=== PATIENT | female | born 1995 | race Hispanic/Latino ===

== ENCOUNTER 2017-08-18 14:34 | Observation (INO) | payer OTHER ==
[2017-08-18 14:43] VITALS: BMI 20.1
[2017-08-18] MEDS ORDERED: Sodium Chloride 0.9% 1,000 ML IV STA (14:56)
[2017-08-18] MEDS ORDERED: Iohexol 240 (50 ml) ONE (15:00)
--- NOTE | 2017-08-18 15:12 | ED PDOC ---
Arrival/HPI - General Chief Complaint: Abdominal Pain Time Seen by Provider: 08/18/17 14:51 Historian: Patient - History of Present Illness Narrative History of Present Illness (Text): 08/18/17 15:06 22yr old female presents today with a 7 day history of upper abdominal pain. pt states pain started 7 days ago after eating. pt states the pain was a heaviness. pt states pain has been worsening over the past few days. pt states she was seen at another hospital and had US which showed gallstones. pt denies dizziness or weakness. pt states she vomited 7 days ago, but not since. pt denies constipation or diarrhea. denies fever/chills. pt denies back pain. no urinary symptoms. denies vaginal discharge. pt states she has been taking motrin for pain without improvement. no other complaints. Past Medical History - Provider Review Nursing Documentation Reviewed: Yes - Travel History Have you recently traveled outside [place] w/in the past 3 mons?: No - Infectious Disease Hx of Infectious Diseases: None - Psychiatric Hx Substance Use: No - Anesthesia Hx Anesthesia: No Family/Social History - Physician Review Nursing Documentation Reviewed: Yes Family/Social History: Unknown Family HX Smoking Status: Never Smoked Hx Alcohol Use: No Hx Substance Use: No Allergies/Home Meds Allergies/Adverse Reactions: Allergies Iodine and Iodide Containing Produc Allergy (Verified 11/05/15 10:02) RASH Sulfa (Sulfonamide Antibiotics) Allergy (Verified 11/05/15 10:02) RASH Home Medications: Home Meds Medication Instructions Recorded Confirmed Unk Med For Allergies 11/05/15 Review of Systems - Review of Systems Constitutional: absent: Fatigue, Fevers Respiratory: absent: SOB, Cough Cardiovascular: absent: Chest Pain, Palpitations Gastrointestinal: Abdominal Pain, Nausea, Vomiting. absent: Constipation, Diarrhea Genitourinary Female: absent: Dysuria, Frequency, Hematuria, Vaginal Discharge Musculoskeletal: absent: Arthralgias, Back Pain, Neck Pain Skin: absent: Rash, Pruritis Neurological: absent: Headache, Dizziness Psychiatric: absent: Anxiety, Depression Physical Exam Vital Signs Reviewed: Yes Vital Signs Temp Pulse Resp BP Pulse Ox 08/18/17 16:40 60 18 108/70 100 08/18/17 14:35 98 F 72 18 110/69 100 Temperature: Afebrile Blood Pressure: Normal Pulse: Regular Respiratory Rate: Normal Appearance: Positive for: Well-Appearing, Non-Toxic, Comfortable Pain Distress: None Mental Status: Positive for: Alert and Oriented X 3 - Systems Exam Head: Present: Atraumatic Mouth: Present: Moist Mucous Membranes Nose (Internal): Present: Normal Inspection Neck: Present: Normal Range of Motion Respiratory/Chest: Present: Clear to Auscultation, Good Air Exchange. No: Respiratory Distress, Accessory Muscle Use Cardiovascular: Present: Regular Rate and Rhythm, Normal S1, S2. No: Murmurs Abdomen: Present: Tenderness (+ ruq, epigastric and luq tenderness), Normal Bowel Sounds. No: Distention, Peritoneal Signs, Rebound, Guarding, McBurney's Point Tender Back: Present: Normal Inspection. No: CVA Tenderness, Midline Tenderness, Paraspinal Tenderness Upper Extremity: Present: Normal ROM Lower Extremity: Present: Normal ROM. No: Edema Neurological: Present: GCS=15, Speech Normal Skin: Present: Warm, Dry, Normal Color. No: Rashes Psychiatric: Present: Alert, Oriented x 3 Medical Decision Making ED Course and Treatment: 08/18/17 15:21 Patient is nontoxic well appearing with stable vital signs presenting with abdominal pain CBC wnl CMP wnl Lipase w nl Urinalysis: WNL Ultrasound: gallstone. CAT scan: FINDINGS: LOWER THORAX: Unremarkable. LIVER: Unremarkable. No gross lesion or ductal dilatation. GALLBLADDER AND BILE DUCTS: Gallstones visible on the concurrent ultrasound are not identified this examination. PANCREAS: Unremarkable. No gross lesion or ductal dilatation. SPLEEN: Unremarkable. ADRENALS: Unremarkable. No mass. KIDNEYS AND URETERS: Unremarkable. No hydronephrosis. No solid mass. VASCULATURE: Unremarkable. No aortic aneurysm. BOWEL: Unremarkable. No obstruction. No gross mural thickening. APPENDIX: Normal appendix. PERITONEUM: Unremarkable. No free fluid. No free air. LYMPH NODES: Unremarkable. No enlarged lymph nodes. BLADDER: Unremarkable. REPRODUCTIVE: Unremarkable. BONES: No acute fracture. OTHER FINDINGS: None. IMPRESSION: No significant or acute findings to account for/ related to the clinical presentation. Patient reassessment: pt non toxic well appearing; no distress. case was discussed with dr. mercado; pt to be admitted to his service with GI consult. Impression: Abdominal pain, gallstones admit observational status to med/surg 08/18/17 19:18 - Lab Interpretations Lab Results: 08/18/17 15:00 08/18/17 15:00 Lab Results 08/18/17 16:23: Urine Color Light yellow, Urine Appearance Clear, Urine pH 6.0, Ur Specific [place] 1.010, Urine Protein Negative, Urine Glucose (UA) Negative, Urine Ketones Negative, Urine Blood Negative, Urine Nitrate Negative, Urine Bilirubin Negative, Urine Urobilinogen 0.2, Ur Leukocyte Esterase Negative 08/18/17 15:00: WBC 4.9, RBC 4.50, Hgb 13.7, Hct 40.5, MCV 90.0, MCH 30.4, MCHC 33.8, RDW 12.6, Plt Count 349, MPV 9.0, Gran % 50.8, Lymph % (Auto) 39.0 H, [place] % (Auto) 5.9, Eos % (Auto) 4.1, Baso % (Auto) 0.2, Gran # 2.50, Lymph # ( Auto) 1.9, [place] # (Auto) 0.3, Eos # (Auto) 0.2, Baso # (Auto) 0.01 08/18/17 15:00: Sodium 141, Potassium 4.3, Chloride 105, Carbon Dioxide 26, Anion Gap 15, BUN 13, Creatinine 0.8, Est GFR ( Amer) > 60, Est GFR (Non- Af Amer) > 60, Random Glucose 78, Calcium 9.8, Total Bilirubin 0.2, AST 22, ALT 28, Alkaline Phosphatase 41, Total Protein 7.1, Albumin 4.1, Globulin 3.1, Albumin/Globulin Ratio 1.3, Lipase 123 - RAD Interpretation Radiology Orders: 08/18/17 14:52 ABD & PELVIS PO CONTRAST ONLY [CT] Stat 08/18/17 17:04 GALLBLADDER & HEPATIC [US] Routine - Medication Orders Current Medication Orders: Acetaminophen (Tylenol 325mg Tab) 650 mg PO Q6H PRN PRN Reason: Fever >100.4 F Ondansetron HCl (Zofran Inj) 4 mg IVP Q6H PRN PRN Reason: Nausea/Vomiting Pantoprazole Sodium (Protonix Inj) 40 mg IVP DAILY SAMEER Discontinued Medications Famotidine (Pepcid) 20 mg IVP STAT STA Stop: 08/18/17 14:57 Last Admin: 08/18/17 15:26 Dose: 20 mg IVP Administration Document 08/18/17 15:26 [facility] (Rec: 08/18/17 15:26 [facility] [id number]) Charges for Administration # of IVP Administrations 1 Sodium Chloride (Sodium Chloride 0.9%) 1,000 mls @ 999 mls/hr IV .Q1H1M STA Stop: 08/18/17 15:56 Last Admin: 08/18/17 15:22 Dose: 999 mls/hr eMAR Start Stop Document 08/18/17 15:22 [facility] (Rec: 08/18/17 15:26 [facility] [id number]) Intravenous Solution Start Date 08/18/17 Start Time 15:26 End Date 08/18/17 End time 16:26 Total Infusion Time 60 Disposition/Present on Arrival - Present on Arrival Any Indicators Present on Arrival: No History of DVT/PE: No History of Uncontrolled Diabetes: No Urinary Catheter: No History of Decub. Ulcer: No History Surgical Site Infection Following: None - Disposition Have Diagnosis and Disposition been Completed?: Yes Diagnosis: Abdominal pain, Gallstones Disposition: HOSPITALIZED Disposition Time: 18:19 Patient Plan: Observation Condition: FAIR Forms: [facility] (Ukrainian)
[2017-08-18 15:36] LABS: BASO # 0.01 K/mm3 (0.0-2.0); BASO % 0.2 % (0.0-3.0); EOS # 0.2 (0.0-0.7); EOS % 4.1 % (1.5-5.0); GRAN # 2.5 (1.4-6.5); GRAN % 50.8 % (50.0-68.0); HEMOGLOBIN 13.7 g/dL (12.0-16.0); LYMPH # 1.9 (1.2-3.4); MEAN CORPUSCULAR HEMOGLOBIN 30.4 pg (25.0-35.0); MEAN CORPUSCULAR HGB CONC 33.8 g/dl (31.0-37.0); MONO # 0.3 (0.1-0.6); MONO % 5.9 % (1.0-6.0); RBC 4.5 10^6/uL (3.5-6.1); RED CELL DISTRIBUTION WIDTH 12.6 % (11.5-14.5); WHITE BLOOD COUNT 4.9 10^3/ul (4.5-11.0)
[2017-08-18 15:39] LABS: BLOOD UREA NITROGEN 13 mg/dL (7-21); GFR AFRICAN-AMERICAN > 60; GFR NON-AFRICAN AMERICAN > 60
[2017-08-18 15:40] LABS: ALB/GLOB RATIO 1.3 (1.1-1.8); ALBUMIN 4.1 g/dL (3.0-4.8); ALT/SGPT 28 U/L (7-56); AST/SGOT 22 U/L (14-36); CALCIUM 9.8 mg/dL (8.4-10.5); LIPASE 123 U/L (23-300)
--- NOTE | 2017-08-18 16:34 | CP.PCM.CON ---
Past Patient History - Infectious Disease Hx of Infectious Diseases: None - Past Social History Smoking Status: Never Smoked - PSYCHIATRIC Hx Substance Use: No - ANESTHESIA Hx Anesthesia: No Meds Allergies/Adverse Reactions: Allergies Allergy/AdvReac Type Severity Reaction Status Date / Time Iodine and Iodide Containing Allergy RASH Verified 11/05/15 10:02 Produc Sulfa (Sulfonamide Allergy RASH Verified 11/05/15 10:02 Antibiotics) Results - Vital Signs Recent Vital Signs: Last Vital Signs Temp 98 F 08/18/17 14:35 Pulse 72 08/18/17 14:35 Resp 18 08/18/17 14:35 BP 110/69 08/18/17 14:35 Pulse Ox 100 08/18/17 14:35 - Labs Result Diagrams: 08/18/17 15:00 08/18/17 15:00 Labs: Laboratory Results - last 24 hr 08/18/17 08/18/17 15:00 15:00 WBC 4.9 RBC 4.50 Hgb 13.7 Hct 40.5 MCV 90.0 MCH 30.4 MCHC 33.8 RDW 12.6 Plt Count 349 MPV 9.0 Gran % 50.8 Lymph % (Auto) 39.0 H [place] % (Auto) 5.9 Eos % (Auto) 4.1 Baso % (Auto) 0.2 Gran # 2.50 Lymph # (Auto) 1.9 [place] # (Auto) 0.3 Eos # (Auto) 0.2 Baso # (Auto) 0.01 Sodium 141 Potassium 4.3 Chloride 105 Carbon Dioxide 26 Anion Gap 15 BUN 13 Creatinine 0.8 Est GFR ( Amer) > 60 Est GFR (Non-Af Amer) > 60 Random Glucose 78 Calcium 9.8 Total Bilirubin 0.2 AST 22 ALT 28 Alkaline Phosphatase 41 Total Protein 7.1 Albumin 4.1 Globulin 3.1 Albumin/Globulin Ratio 1.3 Lipase 123
--- NOTE | 2017-08-18 16:43 | CP.PCM.HP ---
History of Present Illness - History of Present Illness History of Present Illness: Surgery H&P for Dr Tavera: CC: abdominal pain 22 year old female with no PMHx presents with 7 day history of abdominal pain. Patient locates the pain as epigastric and RUQ, achy, constant, has associated decreased appetite, denies radiation of pain. Denies fever, chills, nausea, vomiting, jaundice, steatorrhea, hematochezia, hematemesis, diarrhea. Reports constipation, states that she normally has a BM q3-4 days. Reports intermittent heartburn symptoms, especially more through last year. Pt reports that it all started last week on Thursday while she was on vacation in [place], when she started feeling this pain after lunch. She went to ED over there and abd US showed cholelithiasis, no acute inflammation. Pt tried Zantac and motrin with minimal relief. Denies cp, sob, cough, headache, neck pain, tick bites, leg swelling, sick contacts. No prior endoscopic procedure. Pt on control for past 4-5 years. 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 12 point ROS obtained and negative, except as per HPI. PMH: denies PSH: denies Allergies: Sulfa, PCN, Iodine (hives, itchy throat) Medication: denies FamHX: Mother, gallbladder removal 2 years ago Social HX: social drinker (beers), denies tobacco or illicit drug use. Lives with parents. 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 Sexually active with boyfriend. Present on Admission - Present on Admission Any Indicators Present on Admission: No History of DVT/PE: No History of Uncontrolled Diabetes: No Urinary Catheter: No Decubitus Ulcer Present: No Review of Systems - Review of Systems All systems: reviewed and no additional remarkable complaints except Review of Systems: as per HPI Past Patient History - Infectious Disease Hx of Infectious Diseases: None - Past Social History Smoking Status: Never Smoked - PSYCHIATRIC Hx Substance Use: No - ANESTHESIA Hx Anesthesia: No Meds Allergies/Adverse Reactions: Allergies Allergy/AdvReac Type Severity Reaction Status Date / Time Iodine and Iodide Containing Allergy RASH Verified 11/05/15 10:02 Produc Sulfa (Sulfonamide Allergy RASH Verified 11/05/15 10:02 Antibiotics) Physical Exam - Constitutional Appears: Non-toxic, No Acute Distress - Head Exam Head Exam: ATRAUMATIC, NORMOCEPHALIC - Eye Exam Eye Exam: EOMI, PERRL. absent: Conjunctival injection, Nystagmus, Scleral icterus Pupil Exam: NORMAL ACCOMODATION, PERRL. absent: Fixed, Irregular, Unequal - ENT Exam ENT Exam: Mucous Membranes Moist - Neck Exam Neck exam: Positive for: Full Rom - Respiratory Exam Respiratory Exam: Clear to Auscultation Bilateral. absent: Accessory Muscle Use , Rales, Rhonchi, Wheezes, Stridor - Cardiovascular Exam Cardiovascular Exam: RRR, +S1, +S2. absent: Systolic Murmur - GI/Abdominal Exam GI & Abdominal Exam: Normal Bowel Sounds, Soft, Tenderness (TTP in epigastric, RUQ). absent: Distended, Firm, Guarding, Mass, Organomegaly, Rebound, Rigid Additional comments: negative kirkpatrick's - Extremities Exam Extremities exam: Positive for: normal inspection. Negative for: calf tenderness, pedal edema - Back Exam Back exam: NORMAL INSPECTION - Neurological Exam Neurological exam: Alert, Oriented x3 - Psychiatric Exam Psychiatric exam: Normal Affect, Normal Mood - Skin Skin Exam: Dry, Normal Color, Warm Results - Vital Signs Recent Vital Signs: Last Vital Signs Temp 98 F 08/18/17 14:35 Pulse 72 08/18/17 14:35 Resp 18 08/18/17 14:35 BP 110/69 08/18/17 14:35 Pulse Ox 100 08/18/17 14:35 - Labs Result Diagrams: 08/18/17 15:00 08/18/17 15:00 Labs: Laboratory Results - last 24 hr 08/18/17 08/18/17 15:00 15:00 WBC 4.9 RBC 4.50 Hgb 13.7 Hct 40.5 MCV 90.0 MCH 30.4 MCHC 33.8 RDW 12.6 Plt Count 349 MPV 9.0 Gran % 50.8 Lymph % (Auto) 39.0 H [place] % (Auto) 5.9 Eos % (Auto) 4.1 Baso % (Auto) 0.2 Gran # 2.50 Lymph # (Auto) 1.9 [place] # (Auto) 0.3 Eos # (Auto) 0.2 Baso # (Auto) 0.01 Sodium 141 Potassium 4.3 Chloride 105 Carbon Dioxide 26 Anion Gap 15 BUN 13 Creatinine 0.8 Est GFR ( Amer) > 60 Est GFR (Non-Af Amer) > 60 Random Glucose 78 Calcium 9.8 Total Bilirubin 0.2 AST 22 ALT 28 Alkaline Phosphatase 41 Total Protein 7.1 Albumin 4.1 Globulin 3.1 Albumin/Globulin Ratio 1.3 Lipase 123 Assessment & Plan - Assessment and Plan (Free Text) Assessment: 22 year old female presents for epigastric/RUq pain: - F/u abd US, CT abd pelvis with PO contrast - No cholestasis - VS stable - GI consult. F/u recs. - Liquid diet. Advance as tolerated. - Protonix - SCDs - Further recs per Dr Tavera - Date & Time Date: 08/18/17 Time: 16:59
[2017-08-18 17:06] LABS: URINE BILIRUBIN NEGATIVE (NEGATIVE); URINE BLOOD NEGATIVE (NEGATIVE); URINE GLUCOSE (UA) NEGATIVE (NEGATIVE); URINE LEUKOCYTE ESTERASE NEGATIVE Leu/uL (NEGATIVE); URINE PROTEIN NEGATIVE mg/dL (<30 mg/dL); URINE UROBILINOGEN 0.2 E.U./dL (<1 E.U./dL)
[2017-08-18 17:16] LABS: URINE APPEARANCE CLEAR (CLEAR); URINE COLOR LIGHT YELLOW (YELLOW)
--- NOTE | 2017-08-18 18:44 | CT ---
PROCEDURE: CT Abdomen and Pelvis with contrast HISTORY: Abdominal/gallbladder pain. By history, negative test (concurrent with this examination). COMPARISON: 11/05/2015 CT abdomen and pelvis. August 18, 2017. Abdominal ultrasound TECHNIQUE: Contrast dose: Oral contrast only. Radiation dose: Total exam DLP = mGy-cm. This CT exam was performed using one or more of the following dose reduction techniques: Automated exposure control, adjustment of the mA and/or kV according to patient size, and/or use of iterative reconstruction technique. FINDINGS: LOWER THORAX: Unremarkable. LIVER: Unremarkable. No gross lesion or ductal dilatation. GALLBLADDER AND BILE DUCTS: Gallstones visible on the concurrent ultrasound are not identified this examination. PANCREAS: Unremarkable. No gross lesion or ductal dilatation. SPLEEN: Unremarkable. ADRENALS: Unremarkable. No mass. KIDNEYS AND URETERS: Unremarkable. No hydronephrosis. No solid mass. VASCULATURE: Unremarkable. No aortic aneurysm. BOWEL: Unremarkable. No obstruction. No gross mural thickening. APPENDIX: Normal appendix. PERITONEUM: Unremarkable. No free fluid. No free air. LYMPH NODES: Unremarkable. No enlarged lymph nodes. BLADDER: Unremarkable. REPRODUCTIVE: Unremarkable. BONES: No acute fracture. OTHER FINDINGS: None. IMPRESSION: No significant or acute findings to account for/ related to the clinical presentation.
[2017-08-18] MEDS ORDERED: Influenza Vaccine 60 mcg/0.5 mL SYR (4YR UP) IM ONE (21:09)
[2017-08-18] MEDS ORDERED: Pneumococcal 23-Valent Vaccine IM ONE (21:09)
--- NOTE | 2017-08-19 08:04 | CP.PCM.PN ---
Subjective - Date & Time of Evaluation Date of Evaluation: 08/19/17 Time of Evaluation: 06:40 - Subjective Subjective: Patient seen and examined. No acute events over night. Reports some epigastric pain. Denies n/v. Objective - Vital Signs/Intake and Output Vital Signs (last 24 hours): Temp Pulse Resp BP Pulse Ox 98.9 F 80 20 109/70 98 08/19/17 07:36 08/19/17 07:36 08/19/17 07:36 08/18/17 22:00 08/19/17 07:36 Intake and Output: 08/19/17 08/19/17 06:59 18:59 Intake Total 120 Balance 120 - Medications Medications: Current Medications Acetaminophen (Tylenol 325mg Tab) 650 mg PO Q6H PRN PRN Reason: Fever >100.4 F Ondansetron HCl (Zofran Inj) 4 mg IVP Q6H PRN PRN Reason: Nausea/Vomiting Pantoprazole Sodium (Protonix Inj) 40 mg IVP DAILY SAMEER Polyethylene Glycol (Miralax) 17 gm PO BID SAMEER - Constitutional Appears: No Acute Distress - Head Exam Head Exam: NORMOCEPHALIC - Eye Exam Eye Exam: EOMI, Normal appearance - ENT Exam ENT Exam: Mucous Membranes Moist - Respiratory Exam Respiratory Exam: NORMAL BREATHING PATTERN - Cardiovascular Exam Cardiovascular Exam: +S1 - GI/Abdominal Exam GI & Abdominal Exam: Soft. absent: Distended, Firm, Guarding, Rigid, Tenderness - Neurological Exam Neurological Exam: Alert, Awake, Oriented x3 - Psychiatric Exam Psychiatric exam: Normal Mood - Skin Skin Exam: Dry, Intact, Warm Assessment and Plan - Assessment and Plan (Free Text) Assessment: 22F w/ symptomatic cholelithiasis - Plan: -Clear liquid diet -NPO p MN -F/u GI recs -Plan for OR tomorrow for laparoscopic cholecystectomy, possible open -D/w Dr. Liang Sandoval PGY2
[2017-08-19] MEDS ORDERED: POLYETHYLENE GLYCOL 3350 17 GM/Dose PACKET PO SCH (10:00)
--- NOTE | 2017-08-19 10:08 | US ---
HISTORY: RUQ pain COMPARISON: 11/05/2015 08/18/[address] scans abdomen and pelvis TECHNIQUE: Sonographic evaluation of the right upper quadrant of the abdomen. FINDINGS: LIVER: Measures 15.8 cm in length. Patent portal vein. Portal venous flow: Hepatopetal. Unremarkable echogenicity of the liver parenchyma. No mass. No intrahepatic bile duct dilatation. GALLBLADDER: Cholelithiasis. Negative study for gallbladder wall thickening, pericholecystic fluid, sonographic Gatica's sign. COMMON BILE DUCT: Measures 2.2 mm. No stones. No dilatation. PANCREAS: Unremarkable as visualized. No mass. No ductal dilatation. RIGHT KIDNEY: Measures 3.7 x 9.9 cm in length. Normal echogenicity. No calculus, mass, or hydronephrosis. AORTA: No aneurysmal dilatation. IVC: Unremarkable. OTHER FINDINGS: None . IMPRESSION: Cholelithiasis. No sonographic evidence of acute cholecystitis.
--- NOTE | 2017-08-19 11:28 | CARD ---
APPROVED REPORT EKG Measurement Heart [id number] <Conclusion> Marked sinus bradycardia Abnormal ECG
--- NOTE | 2017-08-19 11:50 | CP.PCM.CON ---
<Chanell Velasquez - Last Filed: 08/19/17 11:45> History of Present Illness - History of Present Illness History of Present Illness: GI Fellow PGY4 Consult Note This is a 22 year old female with no PMHx presents with 1 week history of abdominal pain. Pain is located in the epigastric area and RUQ, achy, constant, has associated decreased appetite, denies radiation of pain. Reports constipation at times but took dulcolax when loretta pain started and had good BMs. Deneis acid reflux or heartburn symptoms. Pt reports that it all started last week on Thursday while she was on vacation in [place], when she started feeling this pain after lunch. She went to ED over there and abd US showed cholelithiasis, no acute inflammation. Pt has been taking Ibuprophen since last week for pain which seems to have helped. Pain is not worse than less week, if anything slightly better. Pt went to see Dr. Tavera yesterday and sent to ER for further evaluation. Prior endoscopic procedures many years ago to r/o colitis which was negative per pt. Pt on control for past 4-5 years. Denies fever, chills, nausea, vomiting, jaundice, steatorrhea, hematochezia, hematemesis, diarrhea. ROS: 12 point ROS obtained and negative, except as per HPI PMH: denies PSH: denies FH: Mother, gallbladder removal 2 years ago SH: social drinker, denies tobacco or illicit drug use Past Patient History - Infectious Disease Hx of Infectious Diseases: None - Past Social History Smoking Status: Never Smoked - HEENT Hx HEENT Problems: Yes Other/Comment: allergies to pollen dander and animals - MUSCULOSKELETAL/RHEUMATOLOGICAL Hx Falls: No - PSYCHIATRIC Hx Substance Use: No - ANESTHESIA Hx Anesthesia: No Meds Allergies/Adverse Reactions: Allergies Allergy/AdvReac Type Severity Reaction Status Date / Time Iodine and Iodide Containing Allergy RASH Verified 11/05/15 10:02 Produc Sulfa (Sulfonamide Allergy RASH Verified 11/05/15 10:02 Antibiotics) - Medications Medications: Current Medications Acetaminophen (Tylenol 325mg Tab) 650 mg PO Q6H PRN PRN Reason: Fever >100.4 F Ondansetron HCl (Zofran Inj) 4 mg IVP Q6H PRN PRN Reason: Nausea/Vomiting Pantoprazole Sodium (Protonix Inj) 40 mg IVP DAILY [facility] Last Admin: 08/19/17 10:53 Dose: 40 mg Polyethylene Glycol (Miralax) 17 gm PO BID [facility] Last Admin: 08/19/17 10:53 Dose: 17 gm Physical Exam - Constitutional Appears: Non-toxic, No Acute Distress - Head Exam Head Exam: ATRAUMATIC, NORMAL INSPECTION, NORMOCEPHALIC - Eye Exam Eye Exam: EOMI, Normal appearance Pupil Exam: NORMAL ACCOMODATION, PERRL - ENT Exam ENT Exam: Mucous Membranes Moist, Normal Exam - Neck Exam Neck exam: Positive for: Normal Inspection - Respiratory Exam Respiratory Exam: Clear to Auscultation Bilateral, NORMAL BREATHING PATTERN - Cardiovascular Exam Cardiovascular Exam: REGULAR RHYTHM, RRR, +S1, +S2 - GI/Abdominal Exam GI & Abdominal Exam: Normal Bowel Sounds, Soft, Tenderness. absent: Distended, Firm, Guarding, Organomegaly - Rectal Exam Rectal Exam: Deferred - Extremities Exam Extremities exam: Positive for: full ROM, normal inspection - Back Exam Back exam: NORMAL INSPECTION - Neurological Exam Neurological exam: Alert, Oriented x3 - Psychiatric Exam Psychiatric exam: Normal Affect, Normal Mood - Skin Skin Exam: Dry, Intact, Normal Color, Warm Results - Vital Signs Recent Vital Signs: Last Vital Signs Temp 98.9 F 08/19/17 07:36 Pulse 80 08/19/17 07:36 Resp 20 08/19/17 07:36 BP 109/70 08/18/17 22:00 Pulse Ox 98 08/19/17 07:36 - Labs Result Diagrams: 08/18/17 15:00 08/18/17 15:00 Assessment & Plan - Assessment and Plan (Free Text) Assessment: This is a 22yF presenting with one week of abdominal pain. 1. Cholelithiasis 2. Epigastric abdominal pain 3. Constipation Plan: -Continue supportive care with pain control and ani-emetics -US with gallstones which can be causing abdominal pain -No signs of acute cholecystitis and LFTs wnl -Pt taking Ibuprofen recently and concern for possible PUD, gastritis, esophagitis -Plan for EGD tomorrow -PPI daily -Miralax daily -NPO tomorrow for EGD -Will follow closely <Radha Tucker - Last Filed: 08/19/17 13:51> Meds - Medications Medications: Current Medications Acetaminophen (Tylenol 325mg Tab) 650 mg PO Q6H PRN PRN Reason: Fever >100.4 F Ondansetron HCl (Zofran Inj) 4 mg IVP Q6H PRN PRN Reason: Nausea/Vomiting Pantoprazole Sodium (Protonix Inj) 40 mg IVP DAILY [facility] Last Admin: 08/19/17 10:53 Dose: 40 mg Polyethylene Glycol (Miralax) 17 gm PO DAILY SAMEER Results - Vital Signs Recent Vital Signs: Last Vital Signs Temp 98.9 F 08/19/17 07:36 Pulse 80 08/19/17 07:36 Resp 20 08/19/17 07:36 BP 109/70 08/18/17 22:00 Pulse Ox 98 08/19/17 07:36 - Labs Result Diagrams: 08/18/17 15:00 08/18/17 15:00 Attending/Attestation - Attestation I have personally seen and examined this patient.: Yes I have fully participated in the care of the patient.: Yes I have reviewed all pertinent clinical information: Yes Notes (Text): 08/19/17 13:49 Patient seen at bedside. This is a 22 year old F presenting with one week of abdominal pain with history of NSAID's. She has cholelithiasis and was admitted by surgeon for the same. Will plan EGD in am. Diet today as tolerated. PPI q am daily. No signs of acute cholecystitis and LFTs wnl. Avoid NSAID's. NPO past midnight
[2017-08-20 07:22] LABS: BASO # 0.03 K/mm3 (0.0-2.0); BASO % 0.5 % (0.0-3.0); EOS # 0.3 (0.0-0.7); EOS % 4.9 % (1.5-5.0); GRAN # 2.91 (1.4-6.5); GRAN % 44.4 % (50.0-68.0); HEMOGLOBIN 12.5 g/dL (12.0-16.0); LYMPH # 2.9 (1.2-3.4); LYMPH % 43.8 % (22.0-35.0); MEAN CELL VOLUME 89.4 fl (80.0-105.0); MEAN CORPUSCULAR HGB CONC 33.5 g/dl (31.0-37.0); MONO # 0.4 (0.1-0.6); MONO % 6.4 % (1.0-6.0); RBC 4.17 10^6/uL (3.5-6.1); RED CELL DISTRIBUTION WIDTH 12.6 % (11.5-14.5); WHITE BLOOD COUNT 6.6 10^3/ul (4.5-11.0)
[2017-08-20 07:45] LABS: ALB/GLOB RATIO 1.3 (1.1-1.8); ALBUMIN 3.5 g/dL (3.0-4.8); ALT/SGPT 24 U/L (7-56); AST/SGOT 21 U/L (14-36); BLOOD UREA NITROGEN 11 mg/dL (7-21); CALCIUM 9.2 mg/dL (8.4-10.5); GFR AFRICAN-AMERICAN > 60; GFR NON-AFRICAN AMERICAN > 60
--- NOTE | 2017-08-20 08:24 | CP.PCM.PN ---
Subjective - Date & Time of Evaluation Date of Evaluation: 08/20/17 Time of Evaluation: 08:22 - Subjective Subjective: Surgery Progress Note: Patient seen and examined at bedside. No acute events overnight. Pt scheduled for EGD this AM. Reports persistent abdominal pain. Denies nausea, vomiting. Objective - Vital Signs/Intake and Output Vital Signs (last 24 hours): Temp Pulse Resp BP Pulse Ox 98.4 F 51 L 16 90/49 L 99 08/20/17 06:00 08/20/17 06:00 08/20/17 06:00 08/20/17 06:00 08/20/17 06:00 Intake and Output: 08/20/17 08/20/17 06:59 18:59 Intake Total 600 Balance 600 - Medications Medications: Current Medications Acetaminophen (Tylenol 325mg Tab) 650 mg PO Q6H PRN PRN Reason: Fever >100.4 F Ondansetron HCl (Zofran Inj) 4 mg IVP Q6H PRN PRN Reason: Nausea/Vomiting Pantoprazole Sodium (Protonix Inj) 40 mg IVP DAILY SAMEER Last Admin: 08/19/17 10:53 Dose: 40 mg Polyethylene Glycol (Miralax) 17 gm PO DAILY SAMEER - Labs Labs: 08/20/17 06:30 08/20/17 06:30 - Constitutional Appears: Non-toxic, No Acute Distress - Head Exam Head Exam: ATRAUMATIC, NORMOCEPHALIC - Eye Exam Eye Exam: EOMI, PERRL. absent: Conjunctival injection, Periorbital swelling, Scleral icterus Pupil Exam: NORMAL ACCOMODATION, PERRL. absent: Fixed, Irregular, Unequal - ENT Exam ENT Exam: Mucous Membranes Moist - Neck Exam Neck Exam: Full ROM - Respiratory Exam Respiratory Exam: Clear to Ausculation Bilateral, NORMAL BREATHING PATTERN. absent: Accessory Muscle Use, Rales, Rhonchi, Wheezes - Cardiovascular Exam Cardiovascular Exam: RRR, +S1, +S2. absent: Murmur - GI/Abdominal Exam GI & Abdominal Exam: Soft, Tenderness, Normal Bowel Sounds. absent: Distended, Guarding, Rigid, Mass, Organomegaly - Back Exam Back Exam: NORMAL INSPECTION - Neurological Exam Neurological Exam: Alert, Awake, Oriented x3 - Psychiatric Exam Psychiatric exam: Normal Affect, Normal Mood - Skin Skin Exam: Dry, Normal Color, Warm Assessment and Plan - Assessment and Plan (Free Text) Assessment: 22 year old female with symptomatic cholelithiasis: -zofran prn -protonix q day -Scheduled for EGD this AM. F/u results. Diet as per GI. -Plan for OR for laparoscopic cholecystectomy, possible open, after EGD -Will discuss with Dr Tavera
[2017-08-20] MEDS: POLYETHYLENE GLYCOL 3350 17 GM/Dose PACKET PO SCH (10:01)
[2017-08-20] MEDS ORDERED: Albuterol HFA 90 mcg/actuation (8 g) ONE ×2 (14:14→14:15)
[2017-08-20] MEDS ORDERED: Propofol 10 mg/ml Inj (20 ML) ONE (14:14)
[2017-08-20] MEDS ORDERED: Midazolam 2 MG/2 ML VIAL ONE (14:16)
[2017-08-20] MEDS: Sodium Chloride 0.9% 1,000 ML IV SCH (19:22)
[2017-08-21] MEDS: Sodium Chloride 0.9% 1,000 ML IV SCH (02:47)
[2017-08-21] MEDS ORDERED: Bupivacaine 0.5% Inj(30mL) ONE (07:16)
[2017-08-21] MEDS ORDERED: Iohexol 240 (50 ml) ONE (07:16)
[2017-08-21 07:36] LABS: HEMOGLOBIN 11.4 g/dL (12.0-16.0); MEAN CORPUSCULAR HEMOGLOBIN 29.9 pg (25.0-35.0); MEAN CORPUSCULAR HGB CONC 33.2 g/dl (31.0-37.0); MEAN PLATELET VOLUME 9.1 fl (7.0-11.0); RBC 3.81 10^6/uL (3.5-6.1); RED CELL DISTRIBUTION WIDTH 12.6 % (11.5-14.5); WHITE BLOOD COUNT 5.8 10^3/ul (4.5-11.0)
[2017-08-21 07:58] LABS: ALB/GLOB RATIO 1.2 (1.1-1.8); ALBUMIN 3.2 g/dL (3.0-4.8); ALT/SGPT 28 U/L (7-56); AST/SGOT 19 U/L (14-36); BLOOD UREA NITROGEN 8 mg/dL (7-21); CALCIUM 9.1 mg/dL (8.4-10.5); GFR AFRICAN-AMERICAN > 60; GFR NON-AFRICAN AMERICAN > 60
[2017-08-21] MEDS ORDERED: Propofol 10 mg/ml Inj (20 ML) ONE (08:04)
[2017-08-21] MEDS ORDERED: Midazolam 2 MG/2 ML VIAL ONE (08:05)
[2017-08-21] MEDS ORDERED: Rocuronium 10 mg/ml (5 ml) ONE (08:06)
[2017-08-21] MEDS ORDERED: metroNIDAZOLE IV 500 mg/100 ml 500 MG/100 ML BAG ONE (08:09)
[2017-08-21] MEDS ORDERED: Ciprofloxacin 400mg/200ml D5W 400 MG/200 ML BAG IVPB ONE (08:11)
[2017-08-21] MEDS ORDERED: Sevoflurane - Inhalation Anesthetic Liq (250 ml) ONE (08:11)
[2017-08-21] MEDS ORDERED: Morphine 2 mg/ml ISec IVP PRN (08:23)
[2017-08-21] MEDS ORDERED: Lactated Ringer's 1,000 ML IV SCH (08:30)
[2017-08-21] MEDS ORDERED: Neostigmine Methylsulfate 3mg/3ml Syringe IV ONE (09:25)
[2017-08-21] MEDS ORDERED: Glycopyrrolate 0.2 mg/ml (2ml vial) ONE (09:25)
--- NOTE | 2017-08-21 09:37 | PCM.SURG1 ---
Surgeon's Initial Post Op Note - Surgeon's Notes Surgeon: Dr. Tavera Field Agronomist: Heidi Jones PGY2, Yennifer PGY3 Type of Anesthesia: General Endo, Local Pre-Operative Diagnosis: Cholelithiasis Operative Findings: Cholelithiasis Post-Operative Diagnosis: Same Operation Performed: Laparoscopic cholecystectomy Specimen/Specimens Removed: Gallbladder Estimated Blood Loss: EBL {In ML}: 10 Blood Products Given: N/A Drains Used: No Drains Post-Op Condition: Good Date of Surgery/Procedure: 08/21/17 Time of Surgery/Procedure: 09:37
[2017-08-21] MEDS ORDERED: Oxycodone/Acetaminophen 5/325 mg Tab PO PRN (09:39)
[2017-08-21] MEDS: POLYETHYLENE GLYCOL 3350 17 GM/Dose PACKET PO SCH (11:25)
--- NOTE | 2017-08-21 13:53 | CP.PCM.DIS ---
Provider - Provider Date of Admission: 08/20/17 15:07 Attending physician: Adam Tavera MD Primary care physician: Adam Tavera MD Consults: Dr. Tucker - GI Time Spent in preparation of Discharge (in minutes): 30 Diagnosis - Discharge Diagnosis (1) Gastritis Status: Acute (2) Gallstones Status: Acute Hospital Course - Lab Results Lab Results: Most Recent Lab Values WBC 5.8 10^3/ul (4.5-11.0) 08/21/17 06:30 RBC 3.81 10^6/uL (3.5-6.1) 08/21/17 06:30 Hgb 11.4 g/dL (12.0-16.0) L 08/21/17 06:30 Hct 34.3 % (36.0-48.0) L 08/21/17 06:30 MCV 90.0 fl (80.0-105.0) 08/21/17 06:30 MCH 29.9 pg (25.0-35.0) 08/21/17 06:30 MCHC 33.2 g/dl (31.0-37.0) 08/21/17 06:30 RDW 12.6 % (11.5-14.5) 08/21/17 06:30 Plt Count 282 10^3/uL (120.0-450.0) 08/21/17 06:30 MPV 9.1 fl (7.0-11.0) 08/21/17 06:30 Gran % 44.4 % (50.0-68.0) L 08/20/17 06:30 Lymph % (Auto) 43.8 % (22.0-35.0) H 08/20/17 06:30 Trimble % (Auto) 6.4 % (1.0-6.0) H 08/20/17 06:30 Eos % (Auto) 4.9 % (1.5-5.0) 08/20/17 06:30 Baso % (Auto) 0.5 % (0.0-3.0) 08/20/17 06:30 Gran # 2.91 (1.4-6.5) 08/20/17 06:30 Lymph # (Auto) 2.9 (1.2-3.4) 08/20/17 06:30 Trimble # (Auto) 0.4 (0.1-0.6) 08/20/17 06:30 Eos # (Auto) 0.3 (0.0-0.7) 08/20/17 06:30 Baso # (Auto) 0.03 K/mm3 (0.0-2.0) 08/20/17 06:30 Sodium 140 mmol/L (132-148) 08/21/17 06:30 Potassium 4.3 mmol/L (3.6-5.0) 08/21/17 06:30 Chloride 106 mmol/L (98-107) 08/21/17 06:30 Carbon Dioxide 24 mmol/L (21-33) 08/21/17 06:30 Anion Gap 13 (10-20) 08/21/17 06:30 BUN 8 mg/dL (7-21) 08/21/17 06:30 Creatinine 0.8 mg/dl (0.7-1.2) 08/21/17 06:30 Est GFR ( Amer) > 60 08/21/17 06:30 Est GFR (Non-Af Amer) > 60 08/21/17 06:30 Random Glucose 76 mg/dL (70-110) 08/21/17 06:30 Calcium 9.1 mg/dL (8.4-10.5) 08/21/17 06:30 Total Bilirubin 0.2 mg/dL (0.2-1.3) 08/21/17 06:30 AST 19 U/L (14-36) 08/21/17 06:30 ALT 28 U/L (7-56) 08/21/17 06:30 Alkaline Phosphatase 38 U/L (38-126) 08/21/17 06:30 Total Protein 5.8 g/dL (5.8-8.3) 08/21/17 06:30 Albumin 3.2 g/dL (3.0-4.8) 08/21/17 06:30 Globulin 2.7 gm/dL 08/21/17 06:30 Albumin/Globulin Ratio 1.2 (1.1-1.8) 08/21/17 06:30 Lipase 123 U/L (23-300) 08/18/17 15:00 Urine Color Light yellow (YELLOW) 08/18/17 16:23 Urine Appearance Clear (CLEAR) 08/18/17 16:23 Urine pH 6.0 (4.7-8.0) 08/18/17 16:23 Ur Specific Willard 1.010 (1.005-1.035) 08/18/17 16:23 Urine Protein Negative mg/dL (<30 mg/dL) 08/18/17 16:23 Urine Glucose (UA) Negative mg/dL (NEGATIVE) 08/18/17 16:23 Urine Ketones Negative mg/dL (NEGATIVE) 08/18/17 16:23 Urine Blood Negative (NEGATIVE) 08/18/17 16:23 Urine Nitrate Negative (NEGATIVE) 08/18/17 16:23 Urine Bilirubin Negative (NEGATIVE) 08/18/17 16:23 Urine Urobilinogen 0.2 E.U./dL (<1 E.U./dL) 08/18/17 16:23 Ur Leukocyte Esterase Negative Narciso/uL (NEGATIVE) 08/18/17 16:23 - Hospital Course Hospital Course: 22F presented to ED w. abd pain for 7 days. U/S showed gallstones. Pt underwent EGD which showed gastritis. Pt subsequently went to OR for lap fausto. Case was uneventful and pt tolerated procedure well. Pt is clear for D/C from surgical standpoint and is to follow up w. Surgery and GI in 1-2 weeks. Discharge Exam - Head Exam Head Exam: ATRAUMATIC, NORMOCEPHALIC - Eye Exam Eye Exam: EOMI. absent: Scleral icterus - ENT Exam ENT Exam: Mucous Membranes Moist - Neck Exam Neck exam: Full Rom - Respiratory Exam Respiratory Exam: NORMAL BREATHING PATTERN. absent: Accessory Muscle Use, Respiratory Distress - Cardiovascular Exam Cardiovascular Exam: REGULAR RHYTHM - GI/Abdominal Exam GI & Abdominal Exam: Soft, Tenderness (per-incisional ). absent: Distended, Firm, Guarding, Rigid - Neurological Exam Neurological exam: Alert, Oriented x3 - Psychiatric Exam Psychiatric exam: Normal Affect, Normal Mood Discharge Plan - Discharge Medications Prescriptions: Pantoprazole Sodium [Protonix] 40 mg PO DAILY #14 ect - Follow Up Plan Condition: FAIR Disposition: HOME/ ROUTINE Patient education suggested?: Yes Instructions: Gastritis, Cholecystectomy, Laparoscopic Surgery Additional Instructions: Follow up at Dr. Tavera's office in 1-2 weeks No heavy lifting for 1 month Ok to take shower. Keep dermabond (glue) or steristrips (white tape) on until they fall off naturally . Low fat diet Ok to return to work or school next week. Referrals: Adam Tavera MD [Primary Care Provider] - Radha Tucker MD [Medical Doctor] -
[2017-08-21 15:23] VITALS: BP 92/52; PULSE 60; RESP 18; TEMP 98.6; O2SAT 98
--- NOTE | 2017-08-28 21:48 | OP ---
PROCEDURE DATE: 08/21/2017 PREOPERATIVE DIAGNOSIS: Acute on chronic cholecystitis and lithiasis. POSTOPERATIVE DIAGNOSIS: Acute on chronic cholecystitis and lithiasis. PROCEDURE: Laparoscopic cholecystectomy. DESCRIPTION OF PROCEDURE: In the operating room, patient was identified by name, name of procedure, laterality, and my te. Patient had a prior EGD and was complaining of right upper quadrant pain, had an ultrasound showing a stone in the neck. The abdomen was prepped with chlorhexidine, waiting 3 minutes, it was then draped. With the abdomen prepped and draped, the time-out was taken where the patient was identified by name, name of procedure, laterality, my te, the consent, and her wrist band. An infraumbilical incision was made because of ring hole in the upper part of the umbilicus. This allowed the Visiport to be placed after the Veress needle showed a normal pressure and 2 L insufflated. Visiport was placed and then a xiphoid 5 and two lateral 5's. This allowed us to pull up in the fundus and then eventually the infundibulum. There was fair amount of omentum that was caking the gallbladder and this was pulled down, cauterized as necessary under direct vision. The duodenum was seemed to be pulled up also. Once the infundibulum was pulled up nicely, the dissection of left and right side of the cystic structures was easily accomplished, the peritoneum on either side with the Harmonic under direct vision. The cystic duct was readily identified and dissected down to a normal caliber, going behind it very nicely in an easy dissection. Cystic artery was a little bit more difficult to bring up, but eventually, it was clearly done. Cystic artery and duct were then cleaned, view of safety was obtained. The cystic duct was doubly clipped and divided prior to the artery, just to get better exposure. This having been done, the cystic artery was doubly clipped and divided. Gallbladder was taken off from the liver bed using the Harmonic and the hook as necessary, placed in a bag. The gallbladder was then removed with minimal dilation of the umbilicus. The abdomen was copiously irrigated and dried. There was nothing untoward to the duodenum, stomach, colon, etc. There was no bleeding, no bile, and it was well-done. The wounds were injected with Marcaine. The incision was closed with a #1 Vicryl under direct vision and it was closed with Vicryl, subcuticular PDS, and Dermabond. Patient was taken to the recovery room in good condition after the sponge and needle counts were declared correct. Adam Tavera MD
== END 2017-08-21 20:01 | disposition home or self-care (01) ==
LOC: ED 14:34 → ERH 18:50 → 5RSO 21:12 → INTOOBSV 08-20 15:07 → OBSVTOIN 08-20 15:07
PROVIDERS: ADMIT Surgery; ATTEND Surgery
PROC: BF031ZZ Plain Radiography of Gallbladder and Bile Ducts using Low Osmolar Contrast (ICD-10-PCS; 2017-08-21)
PROC: 0FT44ZZ Resection of Gallbladder, Percutaneous Endoscopic Approach (ICD-10-PCS; principal; 2017-08-21 07:30)
DX: K80.10 Calculus of gallbladder with chronic cholecystitis without obstruction (principal); K29.70 Gastritis, unspecified, without bleeding; K59.00 Constipation, unspecified